=== PATIENT | female | born 1985 | race Two or more races ===

== ENCOUNTER 2024-07-03 13:26 | Emergency (ER) | payer MEDICAID, OTHER ==
[~2024-07-03] VITALS: Ht 165.1 cm; Wt 109.2 kg
[2024-07-03 13:51] VITALS: BP 131/89; PULSE 111; RESP 16; O2SAT 97
[2024-07-03 14:21] LABS: Urine Bacteria None Seen /hpf (None Seen)
[2024-07-03 14:29] LABS: Urine Blood 1+ /uL (Negative); Urine Clarity Turbid (Clear); Urine Color Yellow (Yellow); Urine Mucus MODERATE (None Seen); Urine Protein, UAD 2+ (Negative); Urine Specific Gravity 1.049 (1.001-1.035); Urine Urobilinogen Normal (Negative); Urine WBC 11 /hpf (0 - 5)
--- NOTE | 2024-07-03 15:00 | ED.PDOC ---
History of Present Illness HPI Comments 39 y/o F, with a Hx of HTN and morbid obesity, presents with daughter for c/o non-radiating, epigastric abdominal pain, nausea, vomiting, diarrhea, chills, and generalized bodyaches for 1 day. Patient reports unprovoked onset of symptoms, last night, that has been persisting since. Patient comments on pain b eing a 8/10, yesterday, and now being a 5/10 after cessation of food intake since. Patient admits to not being , currently, amidst being sexually active along with no endorsement of recent stress, injuries, sick contact, travel, spoiled food intake, or substance use/exposure. Patient states on having no additional relevant or pertinent past medical, surgical, or family Hx, aside from FMHx of CA, HTN, and thyroid disease. Patient denies having any hematemesis, urinary symptoms, poor appetite, constipation, fever, or other associated symptoms or modifiers at this time. Chief Complaint: Abdominal Pain Time Seen by MD: 14:20 Reviewed Notes: Nurses Notes, Medications, Allergies Allergies: Coded Allergies: NO KNOWN ALLERGIES (Unverified , 07/03/24) Information Source: Patient Mode of Arrival: Ambulatory Severity: Moderate Timing: Days Duration: Since onset Prehospital treatment: None Past Medical History PAST MEDICAL HISTORY: HTN Past Medical History (Other): morbid obesity Surgical History: Denies all surgeries PER ASSESSMENT NURSE History: Denies all PER ASSESSMENT NURSE Hx Family History Family History: No family hx of DM, No family hx of Heart florian, No family hx ofKidney florian, No family hx of Liver florian, No family hx of Lung florian, No family hx of Stroke, Family hx of Cancer, Family hx of HTN Family History (Other): thyroid disease Social History Smoker: Non-Smoker Alcohol: Denies ETOH Use Drugs: Denies Drug Use Constitutional: reports: chills; denies: diaphoresis, fatigue, fever, malaise, sweats, weakness, others EENTM: denies: blurred vision, double vision, ear bleeding, ear discharge, ear drainage, ear pain, ear ringing, eye pain, eye redness, hearing loss, mouth pain, mouth swelling, nasal discharge, nose bleeding, nose congestion, nose pain, photophobia, tearing, throat pain, throat swelling, voice changes, others Respiratory: denies: cough, hemoptysis, orthopnea, SOB at rest, shortness of breath, SOB with excertion, stridor, wheezing, others Cardiovascular: denies: chest pain, dizzy spells, diaphoresis, Dyspnea on exertion, edema, irregular heart beat, left arm pain, lightheadedness, palpitations, PND, syncope, others Gastrointestinal: reports: abdominal pain, diarrhea, nausea, vomiting; denies: abdomen distended, blood streaked bowels, constipated, dysphagia, difficulty swallowing, hematemesis, melena, poor appetite, poor fluid intake, rectal bleeding, rectal pain, others Genitourinary: denies: abnormal vagina bleeding, burning, dyspareunia, dysuria, flank pain, frequency, hematuria, incontinence, pain, , vagina discharge, urgency, others Neurological: denies: dizziness, fainting, headache, left sided numbness, left sided weakness, numbness, paresthesia, pre-existing deficit, right sided numbness, right sided weakness, seizure, speech problems, tingling, tremors, weakness, others Musculoskeletal: reports: others (generalized bodyaches ); denies: back pain, gout, joint pain, joint swelling, muscle pain, muscle stiffness, neck pain Integumetry: denies: bruises, change in color, change in hair/nails, dryness, laceration, lesions, lumps, rash, wounds, others Allergic/Immunocompromised: denies: Difficulty Healing, Frequent Infections, Hives, Itching, others Hematologic/Lymphatic: denies: anemia, blood clots, easy bleeding, easy bruising, swollen glands, others Endocrine: denies: excessive hunger, excessive sweating, excessive thirst, excessive urination, flushing, intolerance to cold, intolerance to heat, unexplained weight gain, unexplained weight loss, others Psychiatric: denies: anxiety, bipolar disorder, depression, hopeless, panic disorder, schizophrenia, sleepless, suicidal, others All Other Systems: Reviewed and Negative Physical Exam General Appearance: Moderate Distress HEENT: Normal ENT Inspection, Pharynx Normal, TMs Normal Neck: Full Range of Motion, Non-Tender, Normal, Normal Inspection Respiratory: Chest Non-Tender, Lungs Clear, No Accessory Muscle Use, No Respiratory Distress, Normal Breath Sounds Cardiovascular: No Edema, No JVD, No Murmur, No Gallop, Normal Peripheral Pulses, Regular Rate/Rhythm Breast Exam: Deferred Gastrointestinal: Epigastric, No Organomegaly, No Pulsatile Mass, Normal Bowel Sounds, Soft, Tenderness Genitalia: Deferred Pelvic: Deferred Rectal: Deferred Extremities: No calf tenderness, Normal capillary refill, Normal inspection, Normal range of motion, Non-tender, No pedal edema Musculoskeletal : Apperance: Normal Neurologic: Alert, process planner II-XII nml as Tested, No Motor Deficits, Normal Affect, Normal Mood, No Sensory Deficits Cerebellar Function: Normal Reflexes: Normal Skin: Dry, Normal Color, Warm Lymphatic: No Adenopathy Was a procedure done? Was a procedure done?: No Differential Dx Considerations may include: Gastritis, gastroenteritis, GERD, PUD, cholecystitis, cholelithiasis, cystitis, nephrolithiasis, viral syndrome, spoiled food, , acute abdomen X-Ray, Labs, Meds, VS Vital Signs Date Time Temp Pulse Resp B/P (MAP) Pulse Ox O2 Delivery O2 Flow Rate FiO2 07/03/24 13:51 99.5 111 16 131/89 (103) 97 Lab Test 07/03/24 15:02 07/03/24 13:42 Range/Units White Blood Count 11.4 H 4.4-10.8 10^3/uL Red Blood Count 4.55 4.0-5.20 10^6/uL Hemoglobin 10.4 L 12.2-16.2 g/dL Hematocrit 33.3 L 36.0-46.0 % Mean Corpuscular Volume 73.1 L 80.0-100.0 fL Mean Corpuscular Hemoglobin 22.8 L 28.0-32.0 pg Mean Corpuscular Hemoglobin Concent 31.2 L 32.0-36.0 g/dL Red Cell Distribution Width 16.3 H 11.8-14.3 % Platelet Count 364 140-450 10^3/uL Mean Platelet Volume 7.6 6.9-10.8 fL Neutrophils (%) (Auto) 88.2 H 37.0-80.0 % Lymphocytes (%) (Auto) 7.0 L 10.0-50.0 % Monocytes (%) (Auto) 4.7 0.0-12.0 % Eosinophils (%) (Auto) 0.0 0.0-7.0 % Basophils (%) (Auto) 0.1 0.0-2.0 % Neutrophils # (Auto) 10.1 H 1.6-8.6 10 ^3/uL Lymphocytes # (Auto) 0.8 0.4-5.4 10 ^3/uL Monocytes # (Auto) 0.5 0-1.3 10 ^3/uL Eosinophils # (Auto) 0 0-0.8 10 ^3/uL Basophils # (Auto) 0 0-0.2 10 ^3/uL Nucleated Red Blood Cells 0.0 % Sodium Level 134 L 136-145 mmol/L Potassium Level 3.5 3.5-5.1 mmol/L Chloride Level 107 98-107 mmol/L Carbon Dioxide Level 23 20-31 mmol/L Anion Gap 4 L 5-15 Blood Urea Nitrogen 13 9-23 mg/dL Creatinine 0.95 0.550-1.02 mg/dL Glomerular Filtration Rate Calc 78 >90 mL/min BUN/Creatinine Ratio 13.7 10.0-20.0 Serum Glucose 136 H 74-106 mg/dL Calcium Level 9.5 8.7-10.4 mg/dL Total Bilirubin 0.7 0.2-1.0 mg/dL Aspartate Amino Transferase (AST) 8 L 13-40 U/L Alanine Aminotransferase (ALT) 14 7-40 U/L Alkaline Phosphatase 63 46-116 U/L Total Protein 7.7 5.7-8.2 g/dL Albumin 4.7 3.2-4.8 g/dL Lipase 34 12-53 U/L Urine Color Yellow Yellow Urine Clarity Turbid H Clear Urine pH 6.0 5.0-9.0 Urine Specific [place] 1.049 H 1.001-1.035 Urine Protein 2+ H Negative Urine Ketones Trace Negative Urine Blood 1+ H Negative /uL Urine Nitrite Negative Negative Urine Bilirubin Negative Negative Urine Urobilinogen Normal Negative mg/dL Urine Leukocyte Esterase Negative Negative /uL Urine RBC 14 0 - 4 /hpf Urine WBC 11 0 - 5 /hpf Urine Squamous Epithelial Cells Mod <5 /hpf Urine Transitional Epithelial Cells Few <2 /hpf Urine Bacteria None seen None Seen /hpf Urine Mucus Moderate None Seen Urine Glucose Normal Normal mg/dL IV Hep-Lock was established The patient's urine test is negative for infection The CBC shows an elevated white blood cell count of 11.4 The chemistry panel is within normal limits At this time, the patient was being admitted to the hospitalist The diagnosis is intractable abdominal pain and cholelithiasis The ultrasound of the abdomen shows: IMPRESSION: 1. Cholelithiasis without evidence of cholecystitis. The patient was being admitted We have discussed the findings with the patient and they are in agreement with the management. The patient was given morphine for the pain The patient was given Protonix for the pain and also Zofran for the nausea Images Reviewed?: Images reviewed and evaluated by me Time of 1ST Reevaluation: 14:50 Reevaluation 1ST: Unchanged Patient Education/Counseling: Diagnosis, Treatment, Prognosis Family Education/Counseling: Other (patient's minor daughter present) Departure 1 Departure Time of Disposition: 16:23 Impression: Primary Impression: Intractable abdominal pain Additional Impression: Cholelithiasis Qualified Codes: K80.20 - Calculus of gallbladder without cholecystitis without obstruction Disposition: ADMITTED INPATIENT Admit to: Med Surg Condition: Fair Critical Care Note Critical Care Time?: No Stability Stability form required: Yes Unstable for transfer: ED Physician Assesment (Clinical assesment) Heart Score Heart Score: Heart Score Response (Comments) Value History N/A 0 EKG N/A 0 Age N/A 0 Risk Factors N/A 0 Troponin N/A 0 Total 0 I personally scribed for REINALDO MILES MD ([email or web address]) on 07/03/24 at 15:00. Electronically submitted by Eduardo Dudley ([email or web address]). REINALDO MILES MD Jul 03, 2024 15:00
[2024-07-03 15:34] LABS: Basophils # (auto) 0 10 ^3/uL (0-0.2); Eosinophils # (auto) 0 10 ^3/uL (0-0.8); Lymphocytes # (auto) 0.8 10 ^3/uL (0.4-5.4); Neutrophils # (auto) 10.1 10 ^3/uL (1.6-8.6)
[2024-07-03 15:36] LABS: Basophils % (auto) 0.1 % (0.0-2.0); Hematocrit 33.3 % (36.0-46.0); Hemoglobin 10.4 g/dL (12.2-16.2); Mean Corpuscular Hemoglobin 22.8 pg (28.0-32.0); Mean Corpuscular Hgb Conc. 31.2 g/dL (32.0-36.0); Mean Corpuscular Volume 73.1 fL (80.0-100.0); Monocytes # (auto) 0.5 10 ^3/uL (0-1.3); Monocytes % (auto) 4.7 % (0.0-12.0); Neutrophils % (auto) 88.2 % (37.0-80.0); Platelet Count (auto) 364 10^3/uL (140-450); Red Blood Cells 4.55 10^6/uL (4.0-5.20); Red Cell Distribution Width 16.3 % (11.8-14.3); White Blood Cell 11.4 10^3/uL (4.4-10.8)
[2024-07-03 15:49] LABS: Alanine Aminotransferase 14 U/L (7-40); Albumin 4.7 g/dL (3.2-4.8); Alkaline Phosphatase 63 U/L (46-116); Anion Gap 4 (5-15); Aspartate Aminotransferase 8 U/L (13-40); BUN/Creatinine Ratio 13.7 (10.0-20.0); Blood Urea Nitrogen 13 mg/dL (9-23); Calcium 9.5 mg/dL (8.7-10.4); Carbon Dioxide 23 mmol/L (20-31); Chloride 107 mmol/L (98-107); Glucose 136 mg/dL (74-106); Lipase 34 U/L (12-53); Potassium 3.5 mmol/L (3.5-5.1); Sodium 134 mmol/L (136-145)
--- NOTE | 2024-07-03 15:49 | DVH ---
INDICATION: pain TECHNIQUE: Multiple real-time sonographic images were obtained of the right upper quadrant. COMPARISON: None FINDINGS: The liver demonstrates homogeneous echotexture without focal mass lesions. The liver measu res 16.5 cm. There is no intrahepatic or extrahepatic ductal dilatation. The common duct measures 0.6 cm. Multiple gallstones are seen. The gallbladder wall measures 0.2 cm and is within normal limits. The right kidney measures 11.9 cm. The right kidney is normal in contour, size, and shape. The echo genicity is normal. There is no hydronephrosis. The pancreas is not well visualized due to overlying bowel gas. IMPRESSION: 1. Cholelithiasis without evidence of cholecystitis.
[2024-07-03 15:50] LABS: Bilirubin, Total 0.7 mg/dL (0.2-1.0); Total Protein 7.7 g/dL (5.7-8.2)
== END 2024-07-03 21:20 | disposition left against medical advice (07) ==
LOC: ER 13:26
DX: K80.20 Calculus of gallbladder without cholecystitis without obstruction (principal); R10.13 Epigastric pain; I10 Essential (primary) hypertension; E66.01 Morbid (severe) obesity due to excess calories; Z68.41 Body mass index [BMI] 40.0-44.9, adult
CPT/HCPCS: 36415; 76705; 80053; 81001; 83690; 85025

== ENCOUNTER 2024-07-18 11:10 | Emergency (ER) | payer MEDICAID ==
[~2024-07-18] VITALS: Ht 165.1 cm; Wt 105.9 kg
--- NOTE | 2024-07-18 11:30 | ED.PDOC ---
History of Present Illness HPI Comments HPI: HPI: Poor Historian. 39-year-old female presents to emergency department for an episode of lightheadedness dizziness yesterday which has resolved prior to my evaluation today. She also had an episode of diarrhea that is normal in color yesterday. She did take Tylenol last night. She said she felt warm but never checked her temperature. Patient has a mild headache today. She says she feels better than last night. Denies any sick contacts. Vitals T: 99.0 F RR: 20 HR: 87 BP: 145/93 O2: 99% on RA PMHx: HTN PSHx: denies Social hx: denies tobacco use, endorses ETOH use, denies drug use Meds: unknown Allergies: NKDA REVIEW OF SYSTEMS: CONSTITUTIONAL: Denies acute: fever, diaphoresis, chills, HEAD: Denies acute: photophobia Eyes: Denies acute: Double vision, vision loss, eye pain, eye discharge. EARS: Denies acute: tinnitus, hearing loss, ear discharge, ear pain, THROAT: Denies acute: sore throat, swelling, difficulty swallowing , pain with swallowing, change in voice. NECK: Denies acute: neck pain, neck swelling, stiff neck. HEART: Denies acute : chest pain, palpitations, LUNGS: Denies acute: SOB, wheezing, cough, hemoptysis ABDOMEN: Denies acute: abdominal pain, Nausea, Vomiting, melena , hematemesis, hematochezia SKIN: Denies acute: rash, redness, lesions, itchiness. EXTREMITIES: Denies acute: calf pain, numbness, tingling, weakness, denies pain in extremity. Denies acute: Low back pain. Neuro: Denies acute: focal neurological deficit, motor or sensory focal neurological deficit, tremors, seizure like activity, confusion, change in mental status, loss of bowel or bladder function, cauda equina like symptoms. : Denies acute: dysuria, hematuria, flank pain, increase in urinary frequency. PSYCH: Denies acute: hallucination, suicidal ideation, homicidal ideation. FEMALE: Denies acute: abnormal vaginal bleeding, foul odor, unusual discharge. PHYSICAL EXAM: General: no acute distress, awake and alert. Head: normocephalic, atraumatic. Neck: supple, trachea is midline, no swelling. Throat: Normal phonation. Eyes:, no erythema, no purulent discharge, no proptosis, no icterus. Heart: regular rate, regular rhythm, no significant murmur appreciated. Lungs: no apparent respiratory distress, Able to speak in full sentences. No wheezing, no rhonchi, no crackles. No stridors Clear to auscultation bilaterally. Abdomen: non tender to palpation, non distended, soft, no guarding, no rebound, + bowel sounds. Neuro: Awake, Alert, oriented to name, self, situation, follows commands GCS=15. Speech is normal. Skin: no petechia, no purpura, no cyanosis, non-pale, not jaundice. Lower extremities: --no - Pitting edema no deformity, no focal swelling, no calf TTP. Makes eye contact. moves all four extremities. Face: no apparent facial droop. Ambulating in the ED independently. Chief Complaint: Flu like Time Seen by MD: 11:31 Primary Care Provider: NONE Reviewed Notes: Nurses Notes, Allergies Allergies: Coded Allergies: NO KNOWN ALLERGIES (Unverified , 07/03/24) Information Source: Patient Mode of Arrival: Ambulatory Past Medical History PAST MEDICAL HISTORY: HTN Surgical History: Denies all surgeries [employer] DISTRICT SUPERVISOR History: Denies all [employer] SUPER[employer]OR Hx Family History Family History: No family hx of DM, No family hx of Heart florian, No family hx ofKidney florian, No family hx of Liver florian, No family hx of Lung florian, No family hx of Stroke, Family hx of Cancer, Family hx of HTN Family History (Other): thyroid disease Social History Smoker: Non-Smoker Alcohol: Denies ETOH Use Drugs: Denies Drug Use Lives In: Home Was a procedure done? Was a procedure done?: No Differential Dx Considerations may include: Includes but not limited to thyroid disease, encephalopathy, electrolyte abnormality, sepsis, infection, intracranial pathology, drug adverse effects, arrhythmia, kidney insufficiency, ACS, CVA, malignancy, anemia X-Ray, Labs, Meds, VS Vital Signs Date Time Temp Pulse Resp B/P (MAP) Pulse Ox O2 Delivery O2 Flow Rate FiO2 07/18/24 16:31 98.5 74 19 141/81 (101) 98 98.5 07/18/24 13:59 98.2 88 19 126/83 (97) 99 98.2 07/18/24 13:59 88 19 99 Room Air* 0 21 07/18/24 11:13 99.0 87 20 145/93 (110) 99 Lab Test 07/18/24 14:12 07/18/24 12:44 07/18/24 11:20 Range/Units Influenza Type A Antigen Negative Negative Influenza Type B Antigen Negative Negative SARS-CoV-2 Antigen (Rapid) Negative NEGATIVE White Blood Count 3.4 L 4.4-10.8 10^3/uL Red Blood Count 4.56 4.0-5.20 10^6/uL Hemoglobin 10.6 L 12.2-16.2 g/dL Hematocrit 32.9 L 36.0-46.0 % Mean Corpuscular Volume 72.1 L 80.0-100.0 fL Mean Corpuscular Hemoglobin 23.2 L 28.0-32.0 pg Mean Corpuscular Hemoglobin Concent 32.2 32.0-36.0 g/dL Red Cell Distribution Width 16.4 H 11.8-14.3 % Platelet Count 388 140-450 10^3/uL Mean Platelet Volume 7.6 6.9-10.8 fL Neutrophils (%) (Auto) 42.2 37.0-80.0 % Lymphocytes (%) (Auto) 42.2 10.0-50.0 % Monocytes (%) (Auto) 12.7 H 0.0-12.0 % Eosinophils (%) (Auto) 2.0 0.0-7.0 % Basophils (%) (Auto) 0.9 0.0-2.0 % Neutrophils # (Auto) 1.4 L 1.6-8.6 10 ^3/uL Lymphocytes # (Auto) 1.4 0.4-5.4 10 ^3/uL Monocytes # (Auto) 0.4 0-1.3 10 ^3/uL Eosinophils # (Auto) 0.1 0-0.8 10 ^3/uL Basophils # (Auto) 0 0-0.2 10 ^3/uL Nucleated Red Blood Cells 0.1 % Sodium Level 140 136-145 mmol/L Potassium Level 3.8 3.5-5.1 mmol/L Chloride Level 107 98-107 mmol/L Carbon Dioxide Level 26 20-31 mmol/L Anion Gap 7 5-15 Blood Urea Nitrogen 11 9-23 mg/dL Creatinine 0.90 0.550-1.02 mg/dL Glomerular Filtration Rate Calc 83 >90 mL/min BUN/Creatinine Ratio 12.2 10.0-20.0 Serum Glucose 95 74-106 mg/dL Lactic Acid Level 1.3 0.4-2.0 mmol/L Calcium Level 9.8 8.7-10.4 mg/dL Total Bilirubin 0.4 0.2-1.0 mg/dL Aspartate Amino Transferase (AST) 15 13-40 U/L Alanine Aminotransferase (ALT) 21 7-40 U/L Alkaline Phosphatase 68 46-116 U/L Troponin I High Sensitivity 21 </=34 ng/L Total Protein 7.5 5.7-8.2 g/dL Albumin 4.5 3.2-4.8 g/dL Beta HCG, Quantitative 1.8 1.5-4.2 mIU/mL Urine Color Yellow Yellow Urine Clarity Clear Clear Urine pH 5.5 5.0-9.0 Urine Specific [place] 1.025 1.001-1.035 Urine Protein Trace H Negative Urine Ketones Negative Negative Urine Blood 2+ H Negative /uL Urine Nitrite Negative Negative Urine Bilirubin Negative Negative Urine Urobilinogen Normal Negative mg/dL Urine Leukocyte Esterase Negative Negative /uL Urine RBC 3 0 - 4 /hpf Urine WBC 6 0 - 5 /hpf Urine Squamous Epithelial Cells Few <5 /hpf Urine Bacteria None seen None Seen /hpf Urine Mucus Few None Seen Urine Glucose Normal Normal mg/dL [place] [address] Ph: [phone] DIAGNOSTIC IMAGING Diagnostic Imaging Report : [id number] Signed PATIENT: SAMY ACOSTA ACCT: [id number] UNIT: [id number] : 1985 LOC: ER ROOM / BED: / AGE / SEX: 39 / F ADM STATUS: REG ER SERVICE 1221 ORDERING PHYSICIAN: MARTHA MARLEY DO PROCEDURE(s): CXRP - CHEST PORTABLE REASON: weak ORDER NUMBER(s): [id number], ACCESSION NUMBER(s): [id number] CHEST RADIOGRAPH Indication: weak Technique: Single frontal view of the chest was obtained Comparison: None FINDINGS: Lines and Tubes: None Lungs: No focal consolidation. Pleura: No effusion. No pneumothorax. Cardiomediastinal contours: Unremarkable Bones: No acute osseous abnormality. IMPRESSION: 1. No radiographic evidence of acute cardiopulmonary disease. HS:Y ATED BY: KASSANDRA DOS SANTOS DO DICTATED DATE/TIME: 07/18/241411 SIGNED BY: KASSANDRA DOS SANTOS DO SIGNED DATE/TIME: 07/18/241411 CC: Time of 1ST Reevaluation: 00:00 Reevaluation 1ST: Resolved Patient Education/Counseling: Diagnosis, Treatment Family Education/Counseling: No Family Present Comments Patient presented with the above HPI.---dizziness episode UA and headache---workup was initiated. patient was found with the above mentioned diagnosis. Patient ED course and VS have been stabilized. Patient has been reassessed in the ED and remained in a stable condition. Pertinent incidental findings were discussed with the patient and/or family. Patient/family voices understanding and is agreeable with plan. Patient has been observed in the ED adequate length of time to insure impr ovement/stability. patient was discharged home in a stable condition All the reports of any imaging studies that were ordered by myself were reviewed by myself. Departure 1 Departure Time of Disposition: 16:55 Impression: Primary Impression: Episode of dizziness Additional Impression: Anemia Disposition: 01 HOME / SELF CARE / HOMELESS Condition: Stable Additional Instructions: Additional discharge instructions: You MUST follow-up with your primary care/family doctor in 1 to 2 days. If you are unable to see your primary care/family doctor, please return to our emergency room for re-assessment and re-evaluation in 1 to 2 days. Return to the emergency room here in our facility or to the nearest ER [facility] if your symptoms change or worsen. CONSULTATIONS: you MUST Follow-up for consultation as soon as possible with: cardiology and neurology in 1-2 days. Please call for appointment- You MUST call the consultants office yourself to make an appointment. You may need to arrange that through your insurance and/or your primary/family doctor. If you are unable to see the enterprise resource planning consultant in 1 to 2 days, you must return to our emergency room (or any other ER of your choice) for re-assessment and re-evaluation. Adequate fluid hydration. Discharged With: Self Critical Care Note Critical Care Time?: No I personally scribed for MARTHA MARLEY DO ([email or web address]) on 07/18/24 at 11:30. Electronically submitted by Edna Meehan ([facility]). I personally scribed for MARTHA MARLEY DO ([email or web address]) on 07/18/24 at 11:32. Electronically submitted by Edna Meehan ([facility]). I personally scribed for MARTHA MARLEY DO ([email or web address]) on 07/18/24 at 16:46. Electronically submitted by Edna Meehan ([facility] MARTHA MARLEY DO Jul 18, 2024 11:30
[2024-07-18 11:39] LABS: Urine Bacteria None Seen /hpf (None Seen)
[2024-07-18 12:00] LABS: Urine Blood 2+ /uL (Negative); Urine Clarity Clear (Clear); Urine Color Yellow (Yellow); Urine Mucus FEW (None Seen); Urine Protein, UAD TRACE (Negative); Urine Specific Gravity 1.025 (1.001-1.035); Urine Urobilinogen Normal (Negative); Urine WBC 6 /hpf (0 - 5); Urine pH 5.5 (5.0-9.0)
[2024-07-18 13:13] LABS: Basophils # (auto) 0 10 ^3/uL (0-0.2); Eosinophils # (auto) 0.1 10 ^3/uL (0-0.8); Lymphocytes # (auto) 1.4 10 ^3/uL (0.4-5.4); Monocytes # (auto) 0.4 10 ^3/uL (0-1.3); Nucleated Red Blood Cells % 0.1 %; White Blood Cell 3.4 10^3/uL (4.4-10.8)
[2024-07-18 13:16] LABS: Basophils % (auto) 0.9 % (0.0-2.0); Hematocrit 32.9 % (36.0-46.0); Hemoglobin 10.6 g/dL (12.2-16.2); Lymphocytes % (auto) 42.2 % (10.0-50.0); Mean Corpuscular Hemoglobin 23.2 pg (28.0-32.0); Mean Corpuscular Hgb Conc. 32.2 g/dL (32.0-36.0); Mean Corpuscular Volume 72.1 fL (80.0-100.0); Monocytes % (auto) 12.7 % (0.0-12.0); Neutrophils # (auto) 1.4 10 ^3/uL (1.6-8.6); Neutrophils % (auto) 42.2 % (37.0-80.0); Platelet Count (auto) 388 10^3/uL (140-450); Red Blood Cells 4.56 10^6/uL (4.0-5.20); Red Cell Distribution Width 16.4 % (11.8-14.3)
[2024-07-18 13:38] LABS: Alanine Aminotransferase 21 U/L (7-40); Albumin 4.5 g/dL (3.2-4.8); Alkaline Phosphatase 68 U/L (46-116); Anion Gap 7 (5-15); Aspartate Aminotransferase 15 U/L (13-40); BUN/Creatinine Ratio 12.2 (10.0-20.0); Blood Urea Nitrogen 11 mg/dL (9-23); Calcium 9.8 mg/dL (8.7-10.4); Carbon Dioxide 26 mmol/L (20-31); Chloride 107 mmol/L (98-107); Glucose 95 mg/dL (74-106); Potassium 3.8 mmol/L (3.5-5.1); Sodium 140 mmol/L (136-145); Total Protein 7.5 g/dL (5.7-8.2)
[2024-07-18 13:39] LABS: Bilirubin, Total 0.4 mg/dL (0.2-1.0)
[2024-07-18 13:59] VITALS: PULSE 88; RESP 19; O2SAT 99
--- NOTE | 2024-07-18 14:14 | DVH ---
CHEST RADIOGRAPH Indication: weak Technique: Single frontal view of the chest was obtained Comparison: None FINDINGS: Lines and Tubes: None Lungs: No focal consolidation. Pleura: No effusion. No pneumothorax. Cardiomediastinal contours: Unremarkable Bones: No acute osseous abnormality. IMPRESSION: 1. No radiographic evidence of acute cardiopulmonary disease. HS:Y
[2024-07-18 16:31] VITALS: BP 141/81; PULSE 74; RESP 19; TEMP 98.5; O2SAT 98
[2024-07-18 17:08] LABS: COVID19 ANTIGEN SOFIA FIA NEGATIVE (NEGATIVE); Rapid Influenza A Negative (Negative); Rapid Influenza B Negative (Negative)
== END 2024-07-18 18:15 | disposition home or self-care (01) ==
LOC: ER 11:10
DX: D64.9 Anemia, unspecified (principal); R10.2 Pelvic and perineal pain; I10 Essential (primary) hypertension; Z20.822 Contact with and (suspected) exposure to COVID-19
CPT/HCPCS: 36415; 71045; 80053; 81001; 83605; 84484; 84702; 85025; 87426; 87804